=== PATIENT | female | born 1960 | race Caucasian/White ===

== ENCOUNTER 2020-04-25 09:27 | Outpatient (REF) | payer OTHER, SELFPAY ==
--- NOTE | 2020-04-26 16:07 | MHC.AU.P13 ---
Adult Audiological Evaluation Date of Visit: 04/25/20 Reason for Appointment: Audiological evaluation due to concern for decreased hearing. She notes that she feels she hears well, but her notes that she doesn't hear him. She feels her left ear is worse than the right. Does patient feel they have a hearing loss?: Unsure Has hearing been tested previously?: Yes Previous Hearing Test Results: Prabhakar Good, results not available to be reviewed. Hearing Handicap Inventory: HHIE SCORE: 8 Based on HHIE score, patient has: No perceived hearing handicap Ear History: Family History of Hearing Loss?: Yes: Mother wore hearing aids. History of Ear Wax Buildup: Both Ears Bothersome Tinnitus/Ringing/Noises in Ears: Occasional ringing, 2-3 times per week, both ears Blocked/Full Sensation in Ear(s): Both Ears Medical History: Medical History: Dizziness or Unsteadiness, Headache, High Blood Pressure, Migraines, Scarlet Fever, Tobacco Use Medical History (Other): Tubal ligation 2000, Gall bladder removal 2005, total hysterectomy 2018, Hip replacement 02/21/20 Allergies: Adhesive Medication List: Sertraline 200mg, Atenolol-chlorthalidone 50-25 mg, Trulicity 1.5 mg, rosuvastatin 40 mg, omeprazole dr 20 mg, pregabalin 200 2x daily, Pioglitazone 15 mg, zolpidem tartrate 5 mg, lorazepam .5 mg, vitamin D3 1000, biotin 1000 mcg, Centrum silver, low dose aspirin. Otoscopy: Right Ear: Unremarkable Left Ear: Unremarkable Tympanometry: Tympanometry performed due to: To assess integrity of the middle ear system Right Ear: Normal Middle Ear System (Type A) Left Ear: Normal Middle Ear System (Type A) Hearing Evaluation: Transducer(s) Used: Insert Earphones, Bone Conduction Method: Conventional Audiometry Stimuli Used: Pure Tones Right Ear: Description of Hearing: Normal hearing from 250-8000 Hz. Left Ear: Description of Hearing: Normal hearing from 250-1500 Hz and at 3000 and 6000 Hz. Mild sensorineural hearing loss at 2000, 4000, and 8000 Hz. Thresholds from 2924-7239 Hz are 10-20 dBHL worse in the left ear than the right ear. Speech Recognition Threshold (SRT): Method Used: Monitored Live Voice Stimuli Used: Spondee Words Right Ear: 10 dBHL Left Ear: 10 dBHL Word Discrimination: Method: Recorded Lists Word Lists Used: NU-6 Right Ear: 92% at 50 dBHL Left Ear: 96% at 50 dBHL Recommendations: Audiological re-evaluation in one year. Amplification is not warranted at this time. Recommend annual hearing evaluations to hearing given high-frequency asymmetry. Diagnosis: Primary Diagnosis: H90.42 SNHL Unilateral Left Side, W/Unrestricted Contralateral Hearing Services Performed: Services Performed: Comprehensive Audiological Evaluation (CPT 83900) Tympanometry (CPT 35260) Signature: Provider: Jonh Carlisle, CCC-A
== END 2020-04-25 09:28 | disposition home or self-care (01) ==
LOC: HO.SH 09:27
PROVIDERS: Visit Provider Internal Medicine
DX: H90.5 Unspecified sensorineural hearing loss (principal)
CPT/HCPCS: 92557; 92567

== ENCOUNTER 2020-08-21 09:07 | Outpatient (REF) | payer OTHER, SELFPAY ==
--- NOTE | ~2020-08-21 | MM_ITS ---
EXAMINATION: MM SCREENING DIGITAL BREAST TOMOSYNTHESIS, BILATERAL CLINICAL INFORMATION: Screening. Asymptomatic. The lifetime risk of breast cancer based on the Tyrer-Cuzick Model is 11.0%. COMPARISON: Mammography: August 15, 2019 and studies dating back to February 02, 2015 TECHNIQUE: Digital breast tomosynthesis is performed in both the craniocaudal and mediolateral oblique views along with computer-aided detection (CAD). Synthesized 2D images are generated from the tomosynthesis. FINDINGS: There are scattered areas of fibroglandular density (ACR BI-RADS breast composition Category b). There are no new significant masses, abnormal calcifications, or other abnormalities. MM/MM tomosynthesis screening BI IMPRESSION: There are no significant changes from prior study. ASSESSMENT: BI-RADS 1: Negative RECOMMENDATION: Routine annual mammography screening. This patient's information was entered into a reminder system with a target due date for their next mammogram.
== END 2020-08-21 09:08 | disposition home or self-care (01) ==
LOC: HO.MAMMO 09:07
PROVIDERS: Visit Provider Internal Medicine
DX: Z12.31 Encounter for screening mammogram for malignant neoplasm of breast (principal)
CPT/HCPCS: 77063; 77067